=== PATIENT | male | born 1985 | race Caucasian/White ===

== ENCOUNTER 2023-09-02 16:21 | Inpatient (IN) | payer MEDICAID, OTHER ==
[~2023-09-02] VITALS: Ht 182.9 cm; Wt 75.0 kg
[2023-09-02] MEDS ORDERED: DEXTROSE (50%) 50ML SYRG IV ONE ×5 (16:30→23:30)
[2023-09-02] MEDS ORDERED: DEXTROSE 50% SYRINGE 50 ML IV ONE (16:32)
[2023-09-02] MEDS ORDERED: DEXTROSE 10% 1,000 ML IV ONE (17:45)
[2023-09-02 17:54] LABS: Basophils # (auto) 0 10 ^3/uL (0-0.2); Basophils % (auto) 0.1 % (0.0-2.0); Eosinophils # (auto) 0 10 ^3/uL (0-0.8); Hematocrit 39.5 % (41.0-53.0); Lymphocytes # (auto) 0.7 10 ^3/uL (0.4-5.4); Lymphocytes % (auto) 4.4 % (10.0-50.0); Mean Corpuscular Hemoglobin 28.3 pg (28.0-32.0); Mean Corpuscular Hgb Conc. 32.9 g/dL (32.0-36.0); Monocytes # (auto) 0.7 10 ^3/uL (0-1.3); Monocytes % (auto) 4.7 % (0.0-12.0); Neutrophils # (auto) 13.4 10 ^3/uL (1.6-8.6); Neutrophils % (auto) 90.8 % (37.0-80.0); Red Cell Distribution Width 14.6 % (11.8-14.3); White Blood Cell 14.7 10^3/uL (4.4-10.8)
[2023-09-02 18:08] LABS: Alanine Aminotransferase 15 U/L (7-40); Albumin 3.3 g/dL (3.2-4.8); Alkaline Phosphatase 65 U/L (46-116); Anion Gap 7 (5-15); Aspartate Aminotransferase 28 U/L (13-40); BUN/Creatinine Ratio 8.3 (10.0-20.0); Blood Urea Nitrogen 31 mg/dL (9-23); Calcium 8.1 mg/dL (8.7-10.4); Carbon Dioxide 24 mmol/L (20-30); Chloride 111 mmol/L (98-107); Glucose 62 mg/dL (74-106); Potassium 4.5 mmol/L (3.5-5.1); Sodium 142 mmol/L (136-145)
[2023-09-02 18:09] LABS: Bilirubin, Total 0.4 mg/dL (0.2-1.0); Total Protein 5.8 g/dL (5.7-8.2)
[2023-09-02 18:10] VITALS: PULSE 104; RESP 22; O2SAT 94
[2023-09-02] MEDS ORDERED: DEXTROSE 10% 250 ML IV ONE (18:45)
[2023-09-02 19:35] VITALS: PULSE 102; RESP 22; O2SAT 99
[2023-09-02 19:49] LABS: Blood Alcohol 3.2 mg/dL (<10)
[2023-09-02 19:51] LABS: Acetaminophen < 2.0 UG/ML (10.0-20.0)
[2023-09-02 20:09] LABS: Salicylate < 3.0 mg/dL (2.8-20.0)
[2023-09-02 21:01] LABS: Urine Amorphous Crystal FEW /hpf (None Seen); Urine Bacteria FEW /hpf (None Seen); Urine Blood 1+ /uL (Negative); Urine Clarity HAZY (Clear); Urine Color Yellow (Yellow); Urine Protein, UAD 3+ (Negative); Urine Urobilinogen Normal (Negative); Urine WBC 3 /hpf (0 - 3)
[2023-09-02 21:04] LABS: Free T3 1.83 pg/mL (2.3-4.2)
[2023-09-02 21:05] LABS: Free T4 (Free Thyroxine) 0.82 ng/dL (0.89-1.76)
[2023-09-02 21:11] LABS: Amphetamine Screen, Urine Neg (NEGATIVE); Barbiturate Scree,Urine Neg (NEGATIVE); Benzodiazephine Screen, Urine Neg (NEGATIVE); Cannabinoid Screen, Urine Neg (NEGATIVE); Cocaine Screen, Urine Neg (NEGATIVE); Opiate Scree,Urine Neg (NEGATIVE); Phencyclidine Screen, Urine Neg (NEGATIVE)
[2023-09-02] MEDS ORDERED: hydrALAZINE HCL 20 MG/ML VL IV ONE (21:15)
[2023-09-02] MEDS ORDERED: DEXTROSE 10% 1,000 ML IV SCH (21:15)
[2023-09-02] MEDS ORDERED: ONDANSETRON HCL 4 MG/2 ML VIAL IV PRN (21:15)
[2023-09-02] MEDS ORDERED: cefTRIAXone 1GM/50ML D5W 50 ML IV ONE (21:15)
[2023-09-02] MEDS: LORazepam 2MG/ML-1ML VIAL IV PRN (21:26)
[2023-09-02] MEDS ORDERED: METO25TA93 PO (21:31)
[2023-09-02] MEDS ORDERED: ATOR40TA52 PO (21:31)
[2023-09-02] MEDS ORDERED: FENO160T PO (21:31)
[2023-09-02] MEDS ORDERED: AMLO1TAB23 PO (21:31)
[2023-09-02] MEDS ORDERED: LOSA50TA46 PO (21:31)
[2023-09-02] MEDS ORDERED: ASPI-325 PO (21:31)
[2023-09-02] MEDS: ACCU-CHEK COMFORT CURVE STRIP VI SCH ×3 (21:40→23:42)
[2023-09-02] MEDS ORDERED: ALBUTEROL MEDNEB 2.5 mg/3ml NEB NEB PRN (21:45)
[2023-09-02] MEDS ORDERED: IPRATROPIUM BROM 0.5 MG/2.5ML INH SOL NEB PRN (21:45)
[2023-09-02 22:00] VITALS: BP 156/87; PULSE 87; RESP 20; TEMP 98; O2SAT 96
[2023-09-02] MEDS ORDERED: AZITHROMYCIN 500MG/ 250ML 250 ML IV ONE (22:15)
[2023-09-02] MEDS ORDERED: HALOPERIDOL LACTATE 5 MG/ML INJ VIAL IM ONE (22:15)
[2023-09-02] MEDS ORDERED: MORPHINE SULFATE INJ 2 MG/ml SYRG IV ONE (23:00)
[2023-09-02] MEDS ORDERED: LORazepam 2MG/ML-1ML VIAL IV ONE (23:00)
[2023-09-02] MEDS ORDERED: MORPHINE SULFATE INJ 2 MG/ml SYRG IV PRN ×2 (23:15)
[2023-09-02] MEDS ORDERED: DOCUSATE SOD 100 MG CAP PO PRN (23:15)
[2023-09-02] MEDS ORDERED: NITROGLYCERIN 0.4 MG SL TAB SL PRN (23:15)
[2023-09-03] VITALS (16 sets, daily range): BP systolic 124–156; BP diastolic 58–85; PULSE 73–91; RESP 16–26; TEMP 97.3–97.7; O2SAT 98–99
[2023-09-03] MEDS: ACCU-CHEK COMFORT CURVE STRIP VI SCH ×24 (00:48→23:15)
[2023-09-03] MEDS ORDERED: DEXTROSE (50%) 50ML SYRG IV ONE (01:15)
[2023-09-03] MEDS: DEXTROSE 10% 1,000 ML IV SCH ×3 (06:46→23:02)
[2023-09-03 06:48] LABS: Basophils # (auto) 0.1 10 ^3/uL (0-0.2); Basophils % (auto) 0.6 % (0.0-2.0); Eosinophils # (auto) 0 10 ^3/uL (0-0.8); Eosinophils % (auto) 0.2 % (0.0-7.0); Hematocrit 30.6 % (41.0-53.0); Hemoglobin 10.5 g/dL (13.5-17.5); Lymphocytes # (auto) 1.6 10 ^3/uL (0.4-5.4); Lymphocytes % (auto) 15.2 % (10.0-50.0); Mean Corpuscular Hemoglobin 29.5 pg (28.0-32.0); Mean Corpuscular Hgb Conc. 34.2 g/dL (32.0-36.0); Mean Corpuscular Volume 86.1 fL (80.0-100.0); Monocytes # (auto) 1.1 10 ^3/uL (0-1.3); Monocytes % (auto) 10.8 % (0.0-12.0); Neutrophils # (auto) 7.5 10 ^3/uL (1.6-8.6); Neutrophils % (auto) 73.2 % (37.0-80.0); Red Blood Cells 3.55 10^6/uL (4.5-5.90); Red Cell Distribution Width 14.6 % (11.8-14.3); White Blood Cell 10.2 10^3/uL (4.4-10.8)
[2023-09-03 07:05] LABS: Alanine Aminotransferase 14 U/L (7-40); Albumin 2.4 g/dL (3.2-4.8); Alkaline Phosphatase 48 U/L (46-116); Anion Gap 6 (5-15); Aspartate Aminotransferase 36 U/L (13-40); BUN/Creatinine Ratio 7.7 (10.0-20.0); Blood Urea Nitrogen 31 mg/dL (9-23); Calcium 7.9 mg/dL (8.5-10.1); Carbon Dioxide 21 mmol/L (20-30); Chloride 112 mmol/L (98-107); Cholesterol 109 mg/dL (< 200); Glucose 106 mg/dL (74-106); HDL Cholesterol 32 mg/dL (40-59); LDL Cholesterol 70 mg/dL (< 100); Sodium 139 mmol/L (136-145); Triglycerides 50 mg/dL (< 150)
[2023-09-03 07:06] LABS: Bilirubin, Total 0.4 mg/dL (0.2-1.0); Total Protein 4.3 g/dL (5.7-8.2)
[2023-09-03] MEDS: LORazepam 2MG/ML-1ML VIAL IV PRN (08:37)
[2023-09-03] MEDS: cefTRIAXone 1GM/50ML D5W 50 ML IV SCH (09:52)
[2023-09-03] MEDS: AZITHROMYCIN 500MG/ 250ML 250 ML IV SCH (09:53)
[2023-09-03] MEDS: ASPirin-EC 81 mg tab PO SCH (10:00)
[2023-09-03] MEDS: amLODIPine BESYLATE 5 MG TAB PO SCH (10:00)
[2023-09-03] MEDS: Fenofibrate 160 MG TABLET PO SCH (10:00)
[2023-09-03] MEDS ORDERED: METOPROLOL SUCCINATE XL 50 MG TAB PO SCH (10:00)
[2023-09-03] MEDS: ATORVASTATIN 20 MG TAB PO SCH ×2 (10:15→21:12)
[2023-09-03] MEDS ORDERED: LORazepam 2MG/ML-1ML VIAL IV PRN (10:15)
[2023-09-03] MEDS ORDERED: hydrALAZINE HCL 20 MG/ML VL IV PRN (11:30)
[2023-09-03] MEDS: PANTOPRAZOLE 40 MG/10 ML VIAL INJ IV SCH (12:32)
[2023-09-03 19:45] LABS: Chloride 107 mmol/L (98-107); Potassium 3.8 mmol/L (3.5-5.1); Sodium 135 mmol/L (136-145)
[2023-09-03 19:46] LABS: Anion Gap 6 (5-15); Calcium 7.5 mg/dL (8.7-10.4); Carbon Dioxide 22 mmol/L (20-30)
[2023-09-03 19:51] LABS: BUN/Creatinine Ratio 7.6 (10.0-20.0); Blood Urea Nitrogen 31 mg/dL (9-23); Glucose 109 mg/dL (74-106)
[2023-09-03 20:12] LABS: Rapid Influenza A Negative (Negative); Rapid Influenza B Negative (Negative)
[2023-09-03 20:12] LABS: COVID19 ANTIGEN SOFIA FIA NEGATIVE (NEGATIVE)
[2023-09-03] MEDS ORDERED: ATORVASTATIN 20 MG TAB PO SCH (22:00)
[2023-09-04] VITALS (10 sets, daily range): BP systolic 140–169; BP diastolic 80–90; PULSE 87–95; RESP 16–20; TEMP 97.4–98.1; O2SAT 94–100
[2023-09-04] MEDS: ACCU-CHEK COMFORT CURVE STRIP VI SCH ×9 (00:15→22:39)
[2023-09-04 06:32] LABS: Basophils # (auto) 0 10 ^3/uL (0-0.2); Basophils % (auto) 0.5 % (0.0-2.0); Eosinophils # (auto) 0.1 10 ^3/uL (0-0.8); Eosinophils % (auto) 1.5 % (0.0-7.0); Hemoglobin 10.8 g/dL (13.5-17.5); Lymphocytes # (auto) 1.6 10 ^3/uL (0.4-5.4); Lymphocytes % (auto) 18.2 % (10.0-50.0); Mean Corpuscular Hgb Conc. 33.8 g/dL (32.0-36.0); Mean Corpuscular Volume 85.9 fL (80.0-100.0); Monocytes % (auto) 11.5 % (0.0-12.0); Neutrophils % (auto) 68.3 % (37.0-80.0); Nucleated Red Blood Cells % 0.1 %; Red Blood Cells 3.72 10^6/uL (4.5-5.90); Red Cell Distribution Width 14.4 % (11.8-14.3); White Blood Cell 8.8 10^3/uL (4.4-10.8)
[2023-09-04 06:37] LABS: Albumin 2.4 g/dL (3.2-4.8); Alkaline Phosphatase 51 U/L (46-116); Anion Gap 7 (5-15); Aspartate Aminotransferase 52 U/L (13-40); BUN/Creatinine Ratio 7.3 (10.0-20.0); Blood Urea Nitrogen 30 mg/dL (9-23); Calcium 7.8 mg/dL (8.5-10.1); Carbon Dioxide 20 mmol/L (20-30); Chloride 107 mmol/L (98-107); Glucose 119 mg/dL (74-106); Potassium 3.8 mmol/L (3.5-5.1); Sodium 134 mmol/L (136-145)
[2023-09-04 06:38] LABS: Bilirubin, Total 0.3 mg/dL (0.2-1.0); Total Protein 4.3 g/dL (5.7-8.2)
[2023-09-04 06:57] LABS: Alanine Aminotransferase 19 U/L (7-40)
[2023-09-04] MEDS ORDERED: GLIM2TAB94 PO (07:54)
[2023-09-04] MEDS ORDERED: GLUC1TES94 (07:54)
[2023-09-04] MEDS ORDERED: PATI1POW3 PO (07:54)
[2023-09-04] MEDS ORDERED: INSU100I67 SC (07:54)
[2023-09-04] MEDS: cefTRIAXone 1GM/50ML D5W 50 ML IV SCH (09:52)
[2023-09-04] MEDS: Fenofibrate 160 MG TABLET PO SCH (09:53)
[2023-09-04] MEDS: ASPirin-EC 81 mg tab PO SCH (09:53)
[2023-09-04] MEDS: PANTOPRAZOLE 40 MG/10 ML VIAL INJ IV SCH (09:53)
[2023-09-04] MEDS: amLODIPine BESYLATE 5 MG TAB PO SCH (09:54)
[2023-09-04] MEDS: AZITHROMYCIN 500MG/ 250ML 250 ML IV SCH (10:30)
[2023-09-04] MEDS ORDERED: DEXTROSE (50%) 50ML SYRG IV PRN (15:15)
[2023-09-04] MEDS: InsuLIN REG 1unit/0.01ml Soln (100units/ml) SC SCH ×2 (19:01→22:40)
[2023-09-04 22:11] LABS: Creatinine, Urine 76.43 mg/dL (30.0-125.0)
[2023-09-04] MEDS: ATORVASTATIN 20 MG TAB PO SCH (22:36)
[2023-09-05 05:00] VITALS: BP 147/82; PULSE 95; RESP 18; TEMP 97.5; O2SAT 98
[2023-09-05] MEDS: ACCU-CHEK COMFORT CURVE STRIP VI SCH ×2 (06:21→12:06)
[2023-09-05] MEDS: InsuLIN REG 1unit/0.01ml Soln (100units/ml) SC SCH ×2 (06:21→12:07)
[2023-09-05 06:43] LABS: Anion Gap 8 (5-15); Carbon Dioxide 19 mmol/L (20-30); Chloride 111 mmol/L (98-107); Sodium 138 mmol/L (136-145)
[2023-09-05 06:44] LABS: Calcium 7.7 mg/dL (8.5-10.1)
[2023-09-05 06:49] LABS: BUN/Creatinine Ratio 8.6 (10.0-20.0); Blood Urea Nitrogen 38 mg/dL (9-23); Glucose 69 mg/dL (74-106)
[2023-09-05 07:16] LABS: Basophils # (auto) 0.1 10 ^3/uL (0-0.2); Basophils % (auto) 0.7 % (0.0-2.0); Eosinophils # (auto) 0.1 10 ^3/uL (0-0.8); Eosinophils % (auto) 1.6 % (0.0-7.0); Hematocrit 31.4 % (41.0-53.0); Hemoglobin 10.6 g/dL (13.5-17.5); Lymphocytes # (auto) 1.3 10 ^3/uL (0.4-5.4); Lymphocytes % (auto) 17.1 % (10.0-50.0); Mean Corpuscular Hemoglobin 28.9 pg (28.0-32.0); Mean Corpuscular Hgb Conc. 33.7 g/dL (32.0-36.0); Mean Corpuscular Volume 85.6 fL (80.0-100.0); Monocytes % (auto) 13.3 % (0.0-12.0); Neutrophils # (auto) 5.2 10 ^3/uL (1.6-8.6); Neutrophils % (auto) 67.3 % (37.0-80.0); Red Blood Cells 3.67 10^6/uL (4.5-5.90); White Blood Cell 7.7 10^3/uL (4.4-10.8)
[2023-09-05 07:40] VITALS: O2SAT 98
[2023-09-05 08:30] VITALS: PULSE 87; RESP 16
[2023-09-05 09:00] VITALS: BP 148/85; PULSE 89; RESP 20; TEMP 98.4; O2SAT 98
[2023-09-05] MEDS: ASPirin-EC 81 mg tab PO SCH (09:56)
[2023-09-05] MEDS: cefTRIAXone 1GM/50ML D5W 50 ML IV SCH (09:56)
[2023-09-05] MEDS: amLODIPine BESYLATE 5 MG TAB PO SCH (09:56)
[2023-09-05] MEDS: PANTOPRAZOLE 40 MG/10 ML VIAL INJ IV SCH (09:56)
[2023-09-05] MEDS: Fenofibrate 160 MG TABLET PO SCH (10:00)
[2023-09-05] MEDS ORDERED: AZITHROMYCIN 250 MG TAB PO SCH (10:00)
[2023-09-05] MEDS ORDERED: FURO1TAB31 PO (11:14)
[2023-09-05 11:54] VITALS: PULSE 87; RESP 16
== END 2023-09-05 14:00 | disposition home health service (06) | DRG 420 ==
LOC: EDBD 16:21 → ER 16:21 → TELE 23:07 → TELE-WESTW 09-04 08:47 → WEST WING 09-04 20:35
PROVIDERS: ADMIT Nurse Practitioner Family; ATTEND Internal Medicine
DX: E11.649 Type 2 diabetes mellitus with hypoglycemia without coma (principal); N17.0 Acute kidney failure with tubular necrosis; G93.41 Metabolic encephalopathy; I21.A1 Myocardial infarction type 2; J18.9 Pneumonia, unspecified organism; E87.20 Acidosis, unspecified; N18.4 Chronic kidney disease, stage 4 (severe); E11.65 Type 2 diabetes mellitus with hyperglycemia; E78.5 Hyperlipidemia, unspecified; I16.1 Hypertensive emergency; K82.8 Other specified diseases of gallbladder; R09.02 Hypoxemia; G40.909 Epilepsy, unspecified, not intractable, without status epilepticus; Z20.822 Contact with and (suspected) exposure to COVID-19; I13.10 Hypertensive heart and chronic kidney disease without heart failure, with stage 1 through stage 4 chronic kidney disease, or unspecified chronic kidney disease; E11.22 Type 2 diabetes mellitus with diabetic chronic kidney disease; Z79.4 Long term (current) use of insulin; Z83.3 Family history of diabetes mellitus; Z82.49 Family history of ischemic heart disease and other diseases of the circulatory system; Z79.82 Long term (current) use of aspirin; Z79.899 Other long term (current) drug therapy; Z91.199 Patient's noncompliance with other medical treatment and regimen due to unspecified reason; Z86.73 Personal history of transient ischemic attack (TIA), and cerebral infarction without residual deficits; Z87.891 Personal history of nicotine dependence; Z91.148 Patient's other noncompliance with medication regimen for other reason; Y92.89 Other specified places as the place of occurrence of the external cause
CPT/HCPCS: 36415; 36600; 70450; 70551; 71045; 71250; 72125; 74176; 76775; 80048; 80053; 80061; 80307; 80320; 80329; 81001; 82140; 82550; 82570; 82805; 82962; 83036; 83605; 84156; 84300; 84439; 84443; 84481; 84484; 85025; 87040; 87086; 87426; 87804; 93005; 93306; 93886; 95819; 97163; 99291; C9113; G0378; J0696; J1815

== ENCOUNTER 2024-01-23 06:03 | Inpatient (IN) | payer MEDICAID ==
[~2024-01-23] VITALS: Ht 185.4 cm; Wt 103.6 kg
[~2024-01-23 06:03] MED LIST: AMLO1TAB23 PO; ASPI-325 PO; ATOR40TA52 PO; FENO160T PO; FURO1TAB31 PO; GLIM2TAB94 PO; GLUC1TES94; INSU100I67 SC; LOSA-534 PO; METO25TA93 PO; PATI1POW3 PO
[2024-01-23 07:10] LABS: Basophils # (auto) 0.1 10 ^3/uL (0-0.2); Basophils % (auto) 1.2 % (0.0-2.0); Eosinophils # (auto) 0.1 10 ^3/uL (0-0.8); Eosinophils % (auto) 1.7 % (0.0-7.0); Hematocrit 33.7 % (41.0-53.0); Lymphocytes # (auto) 0.8 10 ^3/uL (0.4-5.4); Lymphocytes % (auto) 12.2 % (10.0-50.0); Mean Corpuscular Hemoglobin 27.6 pg (28.0-32.0); Mean Corpuscular Hgb Conc. 32.5 g/dL (32.0-36.0); Mean Corpuscular Volume 84.8 fL (80.0-100.0); Monocytes # (auto) 0.6 10 ^3/uL (0-1.3); Monocytes % (auto) 9.8 % (0.0-12.0); Neutrophils # (auto) 4.8 10 ^3/uL (1.6-8.6); Neutrophils % (auto) 75.1 % (37.0-80.0); Red Blood Cells 3.97 10^6/uL (4.5-5.90); Red Cell Distribution Width 13.1 % (11.8-14.3); White Blood Cell 6.4 10^3/uL (4.4-10.8)
[2024-01-23 07:23] LABS: Chloride 95 mmol/L (98-107); Potassium 3.7 mmol/L (3.5-5.1); Sodium 139 mmol/L (136-145)
[2024-01-23 07:24] LABS: Anion Gap 11 (5-15); Carbon Dioxide 33 mmol/L (20-30)
[2024-01-23 07:25] LABS: Calcium 9.3 mg/dL (8.5-10.1)
[2024-01-23 07:30] LABS: Glucose 153 mg/dL (74-106)
[2024-01-23 07:55] LABS: Blood Urea Nitrogen 84 mg/dL (9-23)
[2024-01-23] MEDS ORDERED: MORPHINE SULFATE INJ 2 MG/ml SYRG IV PRN (12:15)
[2024-01-23] MEDS ORDERED: ONDANSETRON HCL 4 MG/2 ML VIAL IV PRN (12:15)
[2024-01-23] MEDS ORDERED: DEXTROSE (50%) 50ML SYRG IV PRN (12:15)
[2024-01-23] MEDS ORDERED: DOCUSATE SOD 100 MG CAP PO PRN (12:15)
[2024-01-23 13:04] LABS: INR 1.08 (0.9-1.15); Prothrombin Time 11.4 sec (9.3-11.8)
[2024-01-23] MEDS: InsuLIN REG 1unit/0.01ml Soln (100units/ml) SC SCH (17:00)
[2024-01-23] MEDS: ACCU-CHEK COMFORT CURVE STRIP VI SCH (17:00)
[2024-01-23] MEDS ORDERED: FURO1TAB32 PO (19:31)
[2024-01-23] MEDS ORDERED: SODI650T PO (19:31)
[2024-01-23] MEDS ORDERED: SODI10PA PO (19:31)
[2024-01-23] MEDS ORDERED: CALC0.25 PO (19:31)
[2024-01-23] MEDS ORDERED: CALC667C PO (19:36)
[2024-01-23] MEDS ORDERED: ERGO2000 PO (19:39)
[2024-01-23] MEDS ORDERED: LEV50T PO (19:40)
[2024-01-23] MEDS ORDERED: FOLITAB22 PO (19:41)
[2024-01-23] MEDS ORDERED: METO10TA7 PO (19:43)
[2024-01-23 21:59] VITALS: BP 156/86; PULSE 75; RESP 18; TEMP 98.5; O2SAT 94
[2024-01-23] MEDS: BUMETANIDE 2.5mg/10ml (0.25 mg/ml) INJ IV SCH (23:50)
[2024-01-24 05:00] VITALS: BP 153/72; PULSE 76; RESP 18; TEMP 98.2; O2SAT 96
[2024-01-24 05:31] LABS: Basophils # (auto) 0 10 ^3/uL (0-0.2); Basophils % (auto) 0.9 % (0.0-2.0); Eosinophils # (auto) 0.1 10 ^3/uL (0-0.8); Eosinophils % (auto) 2.2 % (0.0-7.0); Hematocrit 28.6 % (41.0-53.0); Hemoglobin 9.3 g/dL (13.5-17.5); Lymphocytes # (auto) 0.8 10 ^3/uL (0.4-5.4); Lymphocytes % (auto) 15.5 % (10.0-50.0); Mean Corpuscular Hemoglobin 27.6 pg (28.0-32.0); Mean Corpuscular Hgb Conc. 32.5 g/dL (32.0-36.0); Mean Corpuscular Volume 84.7 fL (80.0-100.0); Monocytes # (auto) 0.7 10 ^3/uL (0-1.3); Monocytes % (auto) 12.4 % (0.0-12.0); Neutrophils # (auto) 3.7 10 ^3/uL (1.6-8.6); Nucleated Red Blood Cells % 0.1 %; Red Blood Cells 3.38 10^6/uL (4.5-5.90); Red Cell Distribution Width 13.3 % (11.8-14.3); White Blood Cell 5.3 10^3/uL (4.4-10.8)
[2024-01-24 05:40] LABS: Alanine Aminotransferase 11 U/L (7-40); Albumin 3.4 g/dL (3.2-4.8); Alkaline Phosphatase 90 U/L (46-116); Anion Gap 9 (5-15); Aspartate Aminotransferase 13 U/L (13-40); BUN/Creatinine Ratio 12.7 (10.0-20.0); Calcium 8.9 mg/dL (8.7-10.4); Carbon Dioxide 33 mmol/L (20-30); Chloride 97 mmol/L (98-107); Glucose 137 mg/dL (74-106); Potassium 3.5 mmol/L (3.5-5.1); Sodium 139 mmol/L (136-145)
[2024-01-24 05:41] LABS: Bilirubin, Total 0.4 mg/dL (0.2-1.0); Total Protein 5.7 g/dL (5.7-8.2)
[2024-01-24 05:50] LABS: Blood Urea Nitrogen 89 mg/dL (9-23)
[2024-01-24] MEDS ORDERED: SODIUM CHL 0.9% 1000 ML BAG XX ONE (07:00)
[2024-01-24 08:00] VITALS: PULSE 77; RESP 16; O2SAT 93
[2024-01-24 09:00] VITALS: BP 170/86; PULSE 77; RESP 16; TEMP 98; O2SAT 91
[2024-01-24] MEDS ORDERED: ERGOCALCIFEROL 50,000 UNIT(1.25MG) CAP PO SCH (09:00)
[2024-01-24] MEDS: CALCIUM ACETATE 667 MG CAP PO SCH (09:01)
[2024-01-24] MEDS ORDERED: PATIROMER SORBITEX CALCIUM PO SCH (10:00)
[2024-01-24] MEDS ORDERED: PATIENTS OWN MEDICATION (Furosemide (Lasix) 1 TAB) PO SCH (10:00)
[2024-01-24] MEDS ORDERED: PATIENTS OWN MEDICATION (Fenofibrate 1 TAB) PO SCH (10:00)
[2024-01-24] MEDS: ASPirin-EC 81 mg tab PO SCH (10:00)
[2024-01-24 13:00] VITALS: BP 149/79; PULSE 78; RESP 18; TEMP 98.3; O2SAT 91
[2024-01-24] MEDS: FOLIC ACID PYRIDOXINE CYANCOBA PO SCH (13:12)
[2024-01-24] MEDS: LOSARTAN POTASSIUM 50 MG TAB PO SCH (13:21)
[2024-01-24] MEDS: ATORVASTATIN 20 MG TAB PO SCH (13:21)
[2024-01-24] MEDS: amLODIPine BESYLATE 5 MG TAB PO SCH (13:22)
[2024-01-24] MEDS: CALCITRIOL 0.25 MCG CAP PO SCH (13:22)
[2024-01-24] MEDS: LEVOTHYROXINE SODIUM 50 MCG TAB PO SCH (13:22)
[2024-01-24] MEDS: METOPROLOL SUCCINATE XL 50 MG TAB PO SCH (13:23)
[2024-01-24 15:04] LABS: Body Fluid Polymorphonuclear 8 % (0-25); Body Fluid Red Blood Cells 55 CUMM (0-2000); Body Fluid White Blood Cells 165 CUMM (0-200)
[2024-01-24] MEDS: metOLazone 5 MG TAB PO SCH (15:38)
[2024-01-24 17:00] VITALS: BP 154/77; PULSE 76; RESP 18; TEMP 98.8; O2SAT 91
[2024-01-24 20:00] VITALS: BP 147/72; PULSE 75; RESP 19; TEMP 99; O2SAT 91
[2024-01-25 05:00] VITALS: BP 165/75; PULSE 83; RESP 16; TEMP 98.3; O2SAT 91
[2024-01-25 06:45] LABS: Basophils # (auto) 0 10 ^3/uL (0-0.2); Basophils % (auto) 0.9 % (0.0-2.0); Eosinophils # (auto) 0.1 10 ^3/uL (0-0.8); Eosinophils % (auto) 1.1 % (0.0-7.0); Hematocrit 27.4 % (41.0-53.0); Lymphocytes # (auto) 0.8 10 ^3/uL (0.4-5.4); Lymphocytes % (auto) 14.2 % (10.0-50.0); Mean Corpuscular Hemoglobin 27.8 pg (28.0-32.0); Mean Corpuscular Volume 84.3 fL (80.0-100.0); Monocytes # (auto) 0.7 10 ^3/uL (0-1.3); Monocytes % (auto) 12.3 % (0.0-12.0); Neutrophils # (auto) 3.9 10 ^3/uL (1.6-8.6); Neutrophils % (auto) 71.5 % (37.0-80.0); Red Blood Cells 3.25 10^6/uL (4.5-5.90); Red Cell Distribution Width 13.1 % (11.8-14.3); White Blood Cell 5.4 10^3/uL (4.4-10.8)
[2024-01-25 06:52] LABS: Chloride 97 mmol/L (98-107); Potassium 3.4 mmol/L (3.5-5.1); Sodium 140 mmol/L (136-145)
[2024-01-25 06:53] LABS: Anion Gap 10 (5-15); Calcium 8.8 mg/dL (8.7-10.4); Carbon Dioxide 33 mmol/L (20-30)
[2024-01-25 06:58] LABS: BUN/Creatinine Ratio 11.3 (10.0-20.0); Glucose 128 mg/dL (74-106)
[2024-01-25 07:15] LABS: Blood Urea Nitrogen 69 mg/dL (9-23)
[2024-01-25 09:00] VITALS: BP 151/71; PULSE 78; RESP 20; TEMP 99.5; O2SAT 94
[2024-01-25 11:11] LABS: Protein, Body Fluid 1.9 g/dL (.)
[2024-01-25 11:35] VITALS: BP 164/75; PULSE 76; RESP 18; TEMP 98.5; O2SAT 93
[2024-01-25 15:15] VITALS: BP 149/74
[2024-01-27 08:53] LABS: Hepatitis B Surface Antigen Negative (Negative)
[2024-01-27 09:13] LABS: Hepatitis A Ab IgM Negative
[2024-01-27 09:14] LABS: Hepatitis B Core IgM Negative; Hepatitis C Antibody Negative (Negative)
== END 2024-01-25 15:40 | disposition home or self-care (01) | DRG 194 ==
LOC: ER 06:03 → OVERFLOW 12:25 → WEST WING 12:25
PROVIDERS: ADMIT Nurse Practitioner Family; ATTEND Internal Medicine
PROC: 0W993ZZ Drainage of Right Pleural Cavity, Percutaneous Approach (ICD-10-PCS; principal; 2024-01-24)
PROC: 5A1D70Z Performance of Urinary Filtration, Intermittent, Less than 6 Hours Per Day (ICD-10-PCS; 2024-01-24)
DX: J90 Pleural effusion, not elsewhere classified (principal); I13.2 Hypertensive heart and chronic kidney disease with heart failure and with stage 5 chronic kidney disease, or end stage renal disease; N18.6 End stage renal disease; E11.22 Type 2 diabetes mellitus with diabetic chronic kidney disease; D64.9 Anemia, unspecified; Z79.82 Long term (current) use of aspirin; Z79.84 Long term (current) use of oral hypoglycemic drugs; I50.9 Heart failure, unspecified; Z79.899 Other long term (current) drug therapy; Z90.49 Acquired absence of other specified parts of digestive tract; Z82.49 Family history of ischemic heart disease and other diseases of the circulatory system; Z83.2 Family history of diseases of the blood and blood-forming organs and certain disorders involving the immune mechanism; Z83.3 Family history of diabetes mellitus
CPT/HCPCS: 32555; 36415; 71045; 76604; 76942; 80048; 80053; 80074; 82962; 83986; 85025; 85610; 87070; 87205; 89051; 90935; 93970; 96374; G0378; J1815